=== PATIENT | male | born 1985 | race Hispanic/Latino ===

== ENCOUNTER 2021-03-12 15:38 | Emergency (ER) | payer OTHER ==
[~2021-03-12] VITALS: Ht 167.6 cm; Wt 97.5 kg
[2021-03-12 15:39] VITALS: BP 143/92
[2021-03-12 19:13] VITALS: BP 143/92
[2021-03-12] MEDS ORDERED: TETANUS/DIPHTHERIA TOXOID [ADULT] 0.5 ML VIAL IM ONE ×2 (19:45→21:00)
[2021-03-12] MEDS ORDERED: HYDROCODONE/ACETAMINOPHEN 5/325 MG TAB PO ONE (19:45)
[2021-03-12] MEDS ORDERED: KETOROLAC 30MG VIAL (30MG/ML) IM ONE (19:45)
[2021-03-12] MEDS ORDERED: KETOROLAC 30MG VIAL (30MG/ML) ONE (20:59)
[2021-03-12] MEDS ORDERED: HYDROCODONE/ACETAMINOPHEN 5/325 MG TAB ONE (20:59)
[2021-03-12] MEDS ORDERED: ACET1TAB25 PO (20:59)
[2021-03-12] MEDS ORDERED: CYCL5TAB PO (20:59)
[2021-03-12] MEDS ORDERED: IBUP-2070 PO (20:59)
[2021-03-12 21:09] VITALS: BP 132/82
== END 2021-03-12 21:14 | disposition home or self-care (01) ==
LOC: EDH 15:38
DX: S40.011A Contusion of right shoulder, initial encounter (principal); Z88.0 Allergy status to penicillin; Z79.899 Other long term (current) drug therapy; W22.8XXA Striking against or struck by other objects, initial encounter; Y93.89 Activity, other specified; Y92.89 Other specified places as the place of occurrence of the external cause; Y99.8 Other external cause status
CPT/HCPCS: 73000; 73030; 90471; 90714; 96372; 99284; J1885; 29105